=== PATIENT | male | born 1935 | race Caucasian/White ===

== ENCOUNTER 2020-02-09 11:08 | Inpatient (IN) | payer OTHER ==
[~2020-02-09] VITALS: Ht 165.1 cm; Wt 101.6 kg
[2020-02-09 11:46] LABS: BASOPHILS % (AUTO) 0.1 % (0.0-5.0); HEMATOCRIT 39.4 % (42-54); MEAN CORPUSCULAR HEMOGLOBIN 32.3 pg (27.0-33.0); MEAN CORPUSCULAR HGB CONC 33.5 g/dL (32.0-36.0); MEAN CORPUSCULAR VOLUME 96.3 fL (79-99); MONOCYTES % (AUTO) 9.3 % (3.0-13.0); NEUTROPHILS % (AUTO) 82.2 % (40.0-77.0); PLATELET COUNT (AUTO) 177 K/uL (130-400); RED BLOOD CELL COUNT(AUTO) 4.09 MIL/uL (4.50-6.20); WHITE BLOOD COUNT (AUTO) 13.7 K/uL (4.8-10.8)
[2020-02-09 12:03] LABS: INR 1.12 (0.85-1.15); PARTIAL THROMBOPLASTIN TIME 27.8 SEC (26.3-35.5)
[2020-02-09 12:15] LABS: ALANINE AMINOTRANSFERASE 10 U/L (12-78); ALBUMIN 3.5 g/dL (3.5-5.0); ASPARTATE AMINOTRANSFERASE 11 U/L (10-37); BILIRUBIN,TOTAL 1.3 mg/dL (0.2-1.0); CARBON DIOXIDE 28 mmol/L (21-32); CHLORIDE 100 mmol/L (101-111); CREATINE KINASE, TOTAL 51 U/L (21-232); CREATININE 1.3 mg/dL (0.5-1.5); GLOMERULAR FILTR. RATE CALC 56 mL/min (>60); GLUCOSE,RANDOM 147 mg/dL (70-105); MYOGLOBIN 72 ng/mL (10-92); POTASSIUM 4.1 mmol/L (3.5-5.1); SODIUM SERUM 135 mmol/L (136-145); TOTAL PROTEIN, SERUM 7.1 g/dL (6.0-8.3); TROPONIN I < 0.04 ng/mL (0.00-0.06); UREA NITROGEN, BLOOD 26 mg/dL (7-18)
[2020-02-09 12:25] LABS: BILIRUBIN,URINE Small (NEGATIVE); COLOR,URINE Dark Yellow (YELLOW); GLUCOSE, URINE (UA) Negative (NEGATIVE); KETONES,URINE Trace mg/dL (NEGATIVE); LEUKOCYTE ESTERASE ,URINE Trace (NEGATIVE); NITRATE,URINE Negative (NEGATIVE); OCCULT BLOOD,URINE Negative (NEGATIVE); PH,URINE 5.5 (5.0-8.0); PROTEIN,URINE POS 2+ mg/dL (NEGATIVE)
[2020-02-09] MEDS ORDERED: SODIUM CHLORIDE 0.9% 1000ML 3,000 ML IV ONE (12:38)
[2020-02-09] MEDS ORDERED: ZOSYN 3.375GM+NS 50ML 50 ML IV ONE (12:39)
[2020-02-09] MEDS ORDERED: ACETAMINOPHEN EXTRA STRENGTH 500 MG TABLET ONE (12:39)
[2020-02-09 13:13] LABS: MUCUS,URINE Moderate LPF (None Seen); RBC,URINE 0-1 /HPF (0-1); SQUAMOUS EPITHELIAL CELL,UR 0-2 /HPF (0-2); WBC,URINE 0-1 /HPF (0-1)
[2020-02-09 13:15] LABS: APPEARANCE,URINE TURBID (CLEAR); BACTERIA,URINE Moderate /HPF (None Seen)
[2020-02-09] MEDS ORDERED: HYDRALAZINE HCL 20 MG/ML VIAL IV PRN (19:00)
[2020-02-09] MEDS: DEXTROSE 5%-LACTATED RINGERS 1,000 ML IV SCH (19:00)
[2020-02-09] MEDS ORDERED: MORPHINE SULFATE 2 MG/ML 1ML SYG IVP PRN ×2 (19:00)
[2020-02-09] MEDS ORDERED: ACETAMINOPHEN 650 MG SUPPOSITORY RC PRN (19:00)
[2020-02-09] MEDS ORDERED: ONDANSETRON HCL 4 MG/2 ML VIAL IVP PRN (19:00)
[2020-02-09] MEDS ORDERED: DEXTROSE 5%-LACTATED RINGERS 1,000 ML IV ONE (19:24)
[2020-02-10] VITALS (20 sets, daily range): BP systolic 98–147; BP diastolic 52–79
[2020-02-10] MEDS: DEXTROSE 5%-LACTATED RINGERS 1,000 ML IV SCH ×2 (05:46→20:36)
[2020-02-10] MEDS: PANTOPRAZOLE 40 MG/VIAL IVP SCH (09:05)
--- NOTE | 2020-02-10 11:00 | NUR ---
RD NOTIFICATION Pt admitted with Acute appendicitis, Hx of HTN, DM. Pt is NPO Pending possible Lap-Appendectomy as per EMR. Pt with advanced age. Obesity Class II (BMI 37.0). When medically feasible, recommend advance diet as tolerated to goal of Heart Healthy, 75gm CC Diet order. RD to continue to monitor. Please notify as additional nutrition concerns arise. Thank you. Addendum: 02/10/20 at [address] Amended: Links added.
--- NOTE | 2020-02-10 12:50 | NUR ---
PATIENT SATURATING 90-92% ON ROOMAIR, DENIES SHORTNESS OF BREATH. ABG DONE ON ROOMAIR NOTED PO2 OF 55.1. PLACED PATIENT ON O2 2LPM AND O2 SAT IMPROVED TO 98-99%. WILL CONTINUE TO MONITOR.
[2020-02-10 12:52] LABS: ABG BASE EXCESS 0.6 mmol/L (-2.0-3.0); ABG HCO3 24.7 mmol/L (21.0-28.0); ABG OXYGEN SATURATION 89.6 % (95.0-99.0); ABG PCO2 38 mmHg (35-48)
--- NOTE | 2020-02-10 13:10 | NUR ---
RECEIVED CALL FROM TELE MONITOR, PATIENT AFIB RVR 150s. PATIENT AT THIS TIME SITTING UP IN CHAIR, DENIES CHEST PAIN, DENIES PALPITATIONS. BLOOD PRESSURE 121/64. CALL OUT PLACED TO DR. CHRISTOPHER. NEW ORDERS OBTAINED METOPROLOL 2.5MG IV Q6 PRN FOR HEARTRATE GREATER THAN 100. FIRST DOSE GIVEN. NEW ORDER CARDIO CONSULT, TROPONIN Q8 X 3, EKG Q8 X 3. PATIENT TOLERATED FIRST DOSE OF IV METOPROLOL WELL.
[2020-02-10] MEDS ORDERED: METOPROLOL TARTRATE 1 MG/ML 5ML VIAL IV PRN ×2 (13:15→15:45)
[2020-02-10] MEDS ORDERED: METOPROLOL TARTRATE 1 MG/ML 5ML VIAL IV ONE (13:19)
--- NOTE | 2020-02-10 13:20 | NUR ---
SPOKE WITH [facility] RIGHT OF [facility] MAN. MADE AWARE OF NEW CONSULT FOR NEW ONSET AFIB RVR. NEW ORDERS OBTAINED GIVE EXTRA DOSE OF METOPROLOL 2.5MG IV NOW. NEW ORDER METOPROLOL 5MG IV Q5MINS X3. HOLD FOR SBP LESS THAN 100. STAT ECHO. PATIENT TOLERATED 2ND DOSE OF IV METOPROLOL WELL. HEART RATE AFIB 130s. WILL CONTINUE TO MONITOR.
--- NOTE | 2020-02-10 13:31 | NUR ---
PATIENT CONTINUES WITH AFIB RVR SUSTAINED 130s. IV METOPROLOL 5MG ADMINISTERED . BLOOD PRESSURE 121/61. HEART RATE IMPROVED TO 90s, WILL CONTINUE TO MONITOR.
[2020-02-10] MEDS ORDERED: METOPROLOL TARTRATE 1 MG/ML 5ML VIAL IV SCH ×2 (13:45→14:50)
[2020-02-10] MEDS ORDERED: LIDOCAINE PF 2% 5ML ABBOJECT ONE (15:36)
[2020-02-10] MEDS ORDERED: DEXAMETHASONE SOD PHOSPHATE 10MG/ML 1ML VIAL ONE (15:36)
[2020-02-10] MEDS ORDERED: MIDAZOLAM HCL 1 MG/ML 2ML VIAL ONE (15:36)
[2020-02-10] MEDS ORDERED: SUCCINYLCHOLINE CHLORIDE 20 MG/ML 10 ML VIAL ONE (15:36)
[2020-02-10] MEDS ORDERED: GLYCOPYRROLATE 1 MG/5 ML SYRINGE ONE (15:37)
[2020-02-10] MEDS ORDERED: FENTANYL CITRATE PF 50 MCG/1 ML 2ML VIAL ONE (15:37)
[2020-02-10] MEDS ORDERED: NEOSTIGMINE 5MG/5ML SYR IV ONE (15:37)
[2020-02-10] MEDS ORDERED: ONDANSETRON HCL 4 MG/2 ML VIAL ONE (15:37)
[2020-02-10] MEDS ORDERED: ROCURONIUM 10MG/1ML SYR 10 MG/ML ML ONE (15:37)
[2020-02-10] MEDS ORDERED: PROPOFOL 10 MG/ML 20ML VIAL IV ONE (15:38)
[2020-02-10] MEDS ORDERED: DEXAMETHASONE SOD PHOSPHATE 4 MG/ML 1ML VIAL ONE (15:43)
--- NOTE | 2020-02-10 15:54 | NUR ---
DCP CM met with pt discussed dc plans. Pt is independent prior to admission, lives at home with spouse. Denies any equipments/services. Feels safe to go back home, still drives, spouse able to assist with transportation and needs as necessary. DC plan to home once stable. CM to cont to follow up. Addendum: 02/10/20 at 1555 by ROGER SHUKLA LVN CM Amended: Links added.
[2020-02-10] MEDS ORDERED: BUPIVACAINE/PF 0.5% 30ML VIAL ONE (15:55)
[2020-02-10] MEDS ORDERED: LIDOCAINE HCL-MPF 1% 2ML VIAL IV PRN (16:15)
[2020-02-10] MEDS ORDERED: MAGNESIUM 2GM PREMIX 50ML 50 ML IV PRN (16:15)
[2020-02-10] MEDS ORDERED: POTASSIUM CHLORIDE 20MEQ/100ML 100 ML IV PRN (16:15)
[2020-02-10] MEDS ORDERED: HEPARIN SODIUM 5000UNIT/ML 1ML VIAL SQ SCH (16:15)
[2020-02-10] MEDS ORDERED: CEFAZOLIN SODIUM 1 GM VIAL ONE (16:22)
[2020-02-10] MEDS ORDERED: INSULIN HUMULIN R 100 UNIT/ML 3ML SQ SCH (16:30)
[2020-02-10] MEDS ORDERED: LOSA50TA64 PO (16:33)
[2020-02-10] MEDS ORDERED: METO25TA6 PO (16:33)
[2020-02-10] MEDS ORDERED: METF-444 PO (16:33)
[2020-02-10] MEDS ORDERED: SIMV40TA59 PO (16:33)
[2020-02-10] MEDS ORDERED: CHOL200013 PO (16:33)
[2020-02-10 17:05] LABS: CREATININE 1.1 mg/dL (0.5-1.5); POTASSIUM 3.9 mmol/L (3.5-5.1)
[2020-02-10 17:09] LABS: ALBUMIN 2.9 g/dL (3.5-5.0); BILIRUBIN,TOTAL 0.9 mg/dL (0.2-1.0); MAGNESIUM 1.6 mg/dL (1.80-2.40); TOTAL PROTEIN, SERUM 6.3 g/dL (6.0-8.3)
--- NOTE | 2020-02-10 18:30 | NUR ---
PATIENT RETURNED FROM SURGERY, S/P LAP APPENDECTOMY. DRESSING TO ABDOMEN DRY AND INTACT. SANDRINE DRAIN DRAINING SEROSANG FLUID APPROX 50CC. PATIENT DENIES PAIN, AAOX3. PATIENT SINUS RHYTHM 75. PO METOPROLOL GIVEN. WILL CONTINUE TO MONITOR
[2020-02-10] MEDS: METOPROLOL SUCCINATE 50 MG TAB.SR.24H PO SCH (18:40)
[2020-02-10] MEDS: ZOSYN 3.375GM+NS 50ML 50 ML IV SCH (20:36)
[2020-02-10] MEDS ORDERED: IOHEXOL 350 MG/ML 100ML INFUS..BTL IV ONE (22:43)
--- NOTE | 2020-02-10 23:30 | NUR ---
sewing techniques demonstrator brought patient back because patient refused CTA chest and became aggressive and confused.Went to examine patient and he is alert and oriented ,he said he does not want the procedure period.He said he feels better now and wants to go home tomorrow as soon as the doctor shows up.
[2020-02-11 03:35] VITALS: BP 109/65
[2020-02-11] MEDS: ZOSYN 3.375GM+NS 50ML 50 ML IV SCH ×3 (06:21→20:56)
[2020-02-11] MEDS: METOPROLOL SUCCINATE 50 MG TAB.SR.24H PO SCH ×2 (06:52→16:30)
[2020-02-11 07:00] VITALS: BP 113/57
[2020-02-11 07:08] LABS: BASOPHILS % (AUTO) 0.1 % (0.0-5.0); HEMATOCRIT 33.8 % (42-54); LYMPHOCYTES % (AUTO) 6.1 % (21.0-51.0); MEAN CORPUSCULAR HEMOGLOBIN 32.1 pg (27.0-33.0); MEAN CORPUSCULAR HGB CONC 32.8 g/dL (32.0-36.0); MEAN CORPUSCULAR VOLUME 97.7 fL (79-99); MONOCYTES % (AUTO) 4.3 % (3.0-13.0); NEUTROPHILS % (AUTO) 88.9 % (40.0-77.0); PLATELET COUNT (AUTO) 179 K/uL (130-400); RED BLOOD CELL COUNT(AUTO) 3.46 MIL/uL (4.50-6.20); RED CELL DISTRIBUTION WIDTH 12.7 % (11.0-15.5); WHITE BLOOD COUNT (AUTO) 9.9 K/uL (4.8-10.8)
[2020-02-11 07:18] LABS: ALBUMIN 2.6 g/dL (3.5-5.0); BILIRUBIN,TOTAL 0.5 mg/dL (0.2-1.0); CREATININE 1.2 mg/dL (0.5-1.5); MAGNESIUM 1.7 mg/dL (1.80-2.40); POTASSIUM 3.8 mmol/L (3.5-5.1)
[2020-02-11 07:46] LABS: B-TYPE NATRIURETIC PEPTIDE 313 pg/mL (0-100)
[2020-02-11] MEDS: PANTOPRAZOLE 40 MG/VIAL IVP SCH (09:08)
[2020-02-11 11:00] VITALS: BP 102/59
[2020-02-11] MEDS: DEXTROSE 5%-LACTATED RINGERS 1,000 ML IV SCH (12:46)
[2020-02-11] MEDS: INSULIN HUMULIN R 100 UNIT/ML 3ML SQ SCH ×3 (12:49→20:57)
[2020-02-11 16:00] VITALS: BP 100/47
[2020-02-11] MEDS: METFORMIN HCL 500 MG TABLET PO SCH (16:45)
[2020-02-11 19:01] VITALS: BP 109/56
[2020-02-11] MEDS: SIMVASTATIN 20 MG TABLET PO SCH (20:57)
[2020-02-11] MEDS: LOSARTAN 50 MG TABLET PO SCH (20:58)
[2020-02-11 23:19] VITALS: BP 117/71
[2020-02-12] MEDS: DEXTROSE 5%-LACTATED RINGERS 1,000 ML IV SCH ×2 (00:20→13:40)
[2020-02-12 03:51] VITALS: BP 131/70
[2020-02-12 04:24] LABS: BASOPHILS % (AUTO) 0.1 % (0.0-5.0); HEMATOCRIT 30.2 % (42-54); MEAN CORPUSCULAR HEMOGLOBIN 31.6 pg (27.0-33.0); MEAN CORPUSCULAR HGB CONC 32.8 g/dL (32.0-36.0); MEAN CORPUSCULAR VOLUME 96.5 fL (79-99); MONOCYTES % (AUTO) 7.3 % (3.0-13.0); NEUTROPHILS % (AUTO) 82.1 % (40.0-77.0); PLATELET COUNT (AUTO) 183 K/uL (130-400); RED BLOOD CELL COUNT(AUTO) 3.13 MIL/uL (4.50-6.20); RED CELL DISTRIBUTION WIDTH 12.8 % (11.0-15.5); WHITE BLOOD COUNT (AUTO) 10.5 K/uL (4.8-10.8)
[2020-02-12 04:34] LABS: CREATININE 0.9 mg/dL (0.5-1.5); MAGNESIUM 1.8 mg/dL (1.80-2.40); PHOSPHORUS 2.8 mg/dL (2.5-4.9); POTASSIUM 3.9 mmol/L (3.5-5.1)
[2020-02-12] MEDS: ZOSYN 3.375GM+NS 50ML 50 ML IV SCH ×3 (04:47→21:00)
[2020-02-12] MEDS: INSULIN HUMULIN R 100 UNIT/ML 3ML SQ SCH ×4 (06:40→20:54)
[2020-02-12 07:00] VITALS: BP 99/59
[2020-02-12] MEDS: METOPROLOL SUCCINATE 50 MG TAB.SR.24H PO SCH ×2 (07:30→16:40)
[2020-02-12] MEDS: METFORMIN HCL 500 MG TABLET PO SCH ×2 (07:48→16:40)
[2020-02-12] MEDS: ***HM***(Cholecalciferol (Vitamin D3) (Vitamin D3) 50 MCG) PO SCH (07:50)
[2020-02-12] MEDS: ENOXAPARIN SODIUM 40 MG/0.4 ML SYRINGE SQ SCH (07:50)
[2020-02-12] MEDS ORDERED: METOPROLOL TARTRATE 25 MG TAB PO SCH (09:00)
[2020-02-12] MEDS: PANTOPRAZOLE 40 MG/VIAL IVP SCH (09:11)
[2020-02-12 11:00] VITALS: BP 105/63
[2020-02-12 16:00] VITALS: BP 106/65
[2020-02-12 19:58] VITALS: BP 108/55
[2020-02-12] MEDS: LOSARTAN 50 MG TABLET PO SCH (21:01)
[2020-02-12] MEDS: SIMVASTATIN 20 MG TABLET PO SCH (21:01)
[2020-02-12 23:37] VITALS: BP 118/67
[2020-02-13] MEDS: DEXTROSE 5%-LACTATED RINGERS 1,000 ML IV SCH ×2 (03:00→16:20)
[2020-02-13 03:41] VITALS: BP 109/63
[2020-02-13] MEDS: ZOSYN 3.375GM+NS 50ML 50 ML IV SCH ×3 (04:33→21:10)
[2020-02-13] MEDS: INSULIN HUMULIN R 100 UNIT/ML 3ML SQ SCH ×4 (06:02→21:00)
[2020-02-13 06:05] LABS: BASOPHILS % (AUTO) 0.3 % (0.0-5.0); EOSINOPHILS % (AUTO) 3.4 % (0.0-8.0); HEMATOCRIT 32.2 % (42-54); LYMPHOCYTES % (AUTO) 18.6 % (21.0-51.0); MEAN CORPUSCULAR HEMOGLOBIN 31.8 pg (27.0-33.0); MEAN CORPUSCULAR HGB CONC 32.9 g/dL (32.0-36.0); MEAN CORPUSCULAR VOLUME 96.7 fL (79-99); MONOCYTES % (AUTO) 9.4 % (3.0-13.0); NEUTROPHILS % (AUTO) 67.7 % (40.0-77.0); PLATELET COUNT (AUTO) 212 K/uL (130-400); RED BLOOD CELL COUNT(AUTO) 3.33 MIL/uL (4.50-6.20); RED CELL DISTRIBUTION WIDTH 12.7 % (11.0-15.5); WHITE BLOOD COUNT (AUTO) 8.9 K/uL (4.8-10.8)
[2020-02-13] MEDS: METOPROLOL SUCCINATE 50 MG TAB.SR.24H PO SCH (06:23)
[2020-02-13 06:30] LABS: CREATININE 1.1 mg/dL (0.5-1.5); POTASSIUM 3.4 mmol/L (3.5-5.1)
[2020-02-13 08:00] VITALS: BP 127/67
[2020-02-13] MEDS: PANTOPRAZOLE 40 MG/VIAL IVP SCH (08:42)
[2020-02-13] MEDS: METFORMIN HCL 500 MG TABLET PO SCH ×2 (08:42→17:00)
[2020-02-13] MEDS: ENOXAPARIN SODIUM 40 MG/0.4 ML SYRINGE SQ SCH (08:43)
[2020-02-13] MEDS: ***HM***(Cholecalciferol (Vitamin D3) (Vitamin D3) 50 MCG) PO SCH (08:43)
[2020-02-13] MEDS ORDERED: LIDOCAINE HCL-MPF 1% 2ML VIAL IV PRN (10:45)
[2020-02-13] MEDS ORDERED: POTASSIUM CHLORIDE 20MEQ/100ML 100 ML IV PRN (10:45)
[2020-02-13] MEDS ORDERED: POTASSIUM CHLORIDE 10% ELIXIR 20 MEQ/15 ML UDCUP PO PRN (10:45)
[2020-02-13 11:00] VITALS: BP 130/77
[2020-02-13] MEDS: POTASSIUM CHLORIDE 20 MEQ ERTAB PO PRN ×2 (12:25→17:50)
[2020-02-13 16:00] VITALS: BP 136/72
--- NOTE | 2020-02-13 18:14 | NUR ---
SANDRINE DISCONTINUED SANDRINE DRAIN DISCONTINUED PER DR RICHARD'S ORDERS. NO RESISTANCE WHILE REMOVING DRAIN, PATIENT TOLERATED WELL. COVERED WITH 4X4 AND MEDIPORE TAPE.
[2020-02-13 19:54] VITALS: BP 137/82
[2020-02-13] MEDS: APIXABAN 5 MG TABLET PO SCH (21:11)
[2020-02-13] MEDS: AMIODARONE HCL 200 MG TABLET PO SCH (21:11)
[2020-02-13] MEDS: SIMVASTATIN 20 MG TABLET PO SCH (21:12)
[2020-02-13] MEDS: LOSARTAN 50 MG TABLET PO SCH (21:12)
[2020-02-13 23:54] VITALS: BP 123/67
[2020-02-14 04:03] VITALS: BP 130/72
[2020-02-14 04:36] LABS: BASOPHILS % (AUTO) 0.4 % (0.0-5.0); EOSINOPHILS % (AUTO) 3.9 % (0.0-8.0); HEMATOCRIT 30.9 % (42-54); LYMPHOCYTES % (AUTO) 21.5 % (21.0-51.0); MEAN CORPUSCULAR HEMOGLOBIN 31.2 pg (27.0-33.0); MEAN CORPUSCULAR HGB CONC 32.4 g/dL (32.0-36.0); MEAN CORPUSCULAR VOLUME 96.3 fL (79-99); MONOCYTES % (AUTO) 9.9 % (3.0-13.0); NEUTROPHILS % (AUTO) 63.5 % (40.0-77.0); PLATELET COUNT (AUTO) 223 K/uL (130-400); RED BLOOD CELL COUNT(AUTO) 3.21 MIL/uL (4.50-6.20); RED CELL DISTRIBUTION WIDTH 12.8 % (11.0-15.5)
[2020-02-14] MEDS: ZOSYN 3.375GM+NS 50ML 50 ML IV SCH (05:16)
[2020-02-14 05:25] LABS: CREATININE 1.1 mg/dL (0.5-1.5); MAGNESIUM 1.4 mg/dL (1.80-2.40); POTASSIUM 3.4 mmol/L (3.5-5.1)
[2020-02-14] MEDS: INSULIN HUMULIN R 100 UNIT/ML 3ML SQ SCH (05:42)
[2020-02-14 07:15] VITALS: BP 151/66
[2020-02-14] MEDS: AMIODARONE HCL 200 MG TABLET PO SCH (08:25)
[2020-02-14] MEDS: POTASSIUM CHLORIDE 20 MEQ ERTAB PO PRN ×2 (08:25→09:29)
[2020-02-14] MEDS: PANTOPRAZOLE 40 MG/VIAL IVP SCH (08:25)
[2020-02-14] MEDS: APIXABAN 5 MG TABLET PO SCH (08:26)
[2020-02-14] MEDS: METFORMIN HCL 500 MG TABLET PO SCH (08:26)
[2020-02-14] MEDS: ***HM***(Cholecalciferol (Vitamin D3) (Vitamin D3) 50 MCG) PO SCH (08:26)
[2020-02-14] MEDS ORDERED: MAGNESIUM 2GM PREMIX 50ML 50 ML IV PRN (09:15)
[2020-02-14] MEDS ORDERED: AMOX-429 PO (09:23)
[2020-02-14] MEDS ORDERED: APIX5TAB PO (09:23)
[2020-02-14] MEDS ORDERED: AMIO200T44 PO (09:23)
[2020-02-14] MEDS ORDERED: MAGNESIUM 2GM PREMIX 50ML 50 ML IV ONE (09:26)
--- NOTE | 2020-02-14 12:41 | NUR ---
DISCHARGE DISCHARGE INSTRUCTIONS GIVEN TO PATIENT, VERBALIZED UNDERSTANDING. POST IVELISSE BEDOLLA TEACHING DONE. PATIENT IS TO FOLLOW UP WITH DR QUEZADA AND EMMA FLETCHER. ASIF ROMAN, TELEPAK REMOVED. Addendum: 02/14/20 at 1243 by BLAINE BAEZA RN RN PRESCRIPTIONS SENT ELECTRONICALLY TO [facility].
== END 2020-02-14 12:30 | disposition home or self-care (01) | DRG 854 ==
LOC: EDH 11:08 → EDHIP 18:20 → 4BH 02-10 01:12
PROVIDERS: ADMIT Internal Medicine Pulmonary Disease; ATTEND Internal Medicine Pulmonary Disease
PROC: 0DTJ4ZZ Resection of Appendix, Percutaneous Endoscopic Approach (ICD-10-PCS; principal; 2020-02-10 16:00)
DX: A41.9 Sepsis, unspecified organism (principal); K35.80 Unspecified acute appendicitis; I48.92 Unspecified atrial flutter; I10 Essential (primary) hypertension; E11.9 Type 2 diabetes mellitus without complications; E78.5 Hyperlipidemia, unspecified; Z20.828 Contact with and (suspected) exposure to other viral communicable diseases; R09.02 Hypoxemia; I49.3 Ventricular premature depolarization; K57.30 Diverticulosis of large intestine without perforation or abscess without bleeding; I48.0 Paroxysmal atrial fibrillation; K38.1 Appendicular concretions; Z79.4 Long term (current) use of insulin; Z79.84 Long term (current) use of oral hypoglycemic drugs; Z79.899 Other long term (current) drug therapy; Z91.19 Patient's noncompliance with other medical treatment and regimen; Z82.49 Family history of ischemic heart disease and other diseases of the circulatory system
CPT/HCPCS: 36415; 36600; 71045; 74176; 80048; 80053; 81001; 82550; 82803; 82948; 83605; 83735; 83874; 83880; 84100; 84145; 84443; 84484; 85025; 85610; 85730; 87040; 87088; 87635; 88304; 88342; 93005; 93306; 93356; C9113; G0378; J0330; J0690; J1100; J1650; J1815; J2001; J2250; J2405; J2543; J2704; J2710; J3010; J3475; J3490; J7030; Q9967

== ENCOUNTER 2020-09-26 09:44 | Inpatient (IN) | payer OTHER ==
[~2020-09-26] VITALS: Ht 167.6 cm; Wt 84.5 kg
[~2020-09-26 09:44] MED LIST: AMIO200T44 PO; AMOX-429 PO; APIX5TAB PO; CHOL200013 PO; LOSA50TA64 PO; METF-444 PO; SIMV40TA59 PO
[2020-09-26 10:35] LABS: ABG BASE EXCESS 0.3 mmol/L (-2.0-3.0); ABG HCO3 23.4 mmol/L (21.0-28.0); ABG OXYGEN SATURATION 93.6 % (95.0-99.0); ABG PCO2 33 mmHg (35-48)
[2020-09-26 10:38] LABS: BASOPHILS % (AUTO) 0.3 % (0.0-5.0); EOSINOPHILS % (AUTO) 0.1 % (0.0-8.0); HEMATOCRIT 38.5 % (42-54); LYMPHOCYTES % (AUTO) 6.4 % (21.0-51.0); MEAN CORPUSCULAR HEMOGLOBIN 31.8 pg (27.0-33.0); MEAN CORPUSCULAR VOLUME 96.3 fL (79-99); MONOCYTES % (AUTO) 7.7 % (3.0-13.0); NEUTROPHILS % (AUTO) 85.1 % (40.0-77.0); PLATELET COUNT (AUTO) 208 K/uL (130-400); RED CELL DISTRIBUTION WIDTH 12.8 % (11.0-15.5); WHITE BLOOD COUNT (AUTO) 15.7 K/uL (4.8-10.8)
[2020-09-26 10:49] LABS: CARBON DIOXIDE 27 mmol/L (21-32); CHLORIDE 103 mmol/L (101-111); CREATININE 1.5 mg/dL (0.5-1.5); GLOMERULAR FILTR. RATE CALC 48 mL/min (>60); GLUCOSE,RANDOM 150 mg/dL (70-105); INR 1.07 (0.85-1.15); POTASSIUM 4.5 mmol/L (3.5-5.1); PROTHROMBIN TIME 11.6 SEC (9.6-11.6); SODIUM SERUM 138 mmol/L (136-145); UREA NITROGEN, BLOOD 22 mg/dL (7-18)
[2020-09-26 10:50] LABS: PARTIAL THROMBOPLASTIN TIME 25.1 SEC (26.3-35.5)
[2020-09-26 10:59] LABS: ALANINE AMINOTRANSFERASE 19 U/L (12-78); ASPARTATE AMINOTRANSFERASE 16 U/L (10-37); BILIRUBIN,TOTAL 0.6 mg/dL (0.2-1.0); CREATINE KINASE, TOTAL 83 U/L (21-232); MYOGLOBIN 67 ng/mL (10-92); TOTAL PROTEIN, SERUM 7.5 g/dL (6.0-8.3); TROPONIN I < 0.04 ng/mL (0.00-0.06)
[2020-09-26 11:07] LABS: B-TYPE NATRIURETIC PEPTIDE 122 pg/mL (0-100)
[2020-09-26] MEDS ORDERED: 0.9%NACL 1000ML 1,000 ML IV ONE ×2 (12:30→17:39)
[2020-09-26 13:03] LABS: APPEARANCE,URINE Cloudy (CLEAR); BILIRUBIN,URINE Negative (NEGATIVE); COLOR,URINE Yellow (YELLOW); GLUCOSE, URINE (UA) Negative (NEGATIVE); KETONES,URINE Negative (NEGATIVE); LEUKOCYTE ESTERASE ,URINE Large (NEGATIVE); NITRATE,URINE Negative (NEGATIVE); OCCULT BLOOD,URINE Moderate (NEGATIVE); PH,URINE 5.5 (5.0-8.0); PROTEIN,URINE Trace mg/dL (NEGATIVE)
[2020-09-26 13:20] LABS: BACTERIA,URINE Few /HPF (None Seen); MUCUS,URINE Few LPF (None Seen); SQUAMOUS EPITHELIAL CELL,UR 0-2 /HPF (0-2)
[2020-09-26] MEDS ORDERED: CEFTRIAXONE 2GM VIAL ONE (13:27)
[2020-09-26] MEDS ORDERED: DIPHENHYDRAMINE HCL 25 MG CAPSULE PO PRN (15:00)
[2020-09-26] MEDS ORDERED: ACETAMINOPHEN WITH CODEINE 1 TAB TAB PO PRN (15:00)
[2020-09-26] MEDS ORDERED: ONDANSETRON 4MG INJ IV PRN (15:00)
[2020-09-26] MEDS ORDERED: ACETAMINOPHEN 325 MG TAB PO PRN ×2 (15:00)
[2020-09-26] MEDS ORDERED: MAGNESIUM 2GM PREMIX 50ML 50 ML IV PRN (15:00)
[2020-09-26] MEDS ORDERED: LACTULOSE 20 GM/30 ML UDCUP PO PRN (15:00)
[2020-09-26] MEDS ORDERED: POTASSIUM CHLORIDE 20MEQ/100ML 100 ML IV PRN (15:00)
[2020-09-26] MEDS: 0.9%NACL 1000ML 1,000 ML IV SCH (15:00)
[2020-09-26] MEDS ORDERED: LIDOCAINE HCL-MPF 1% 2ML VIAL IV PRN (15:00)
[2020-09-26] MEDS ORDERED: NITROGLYCERIN 0.4 MG SL TAB SL PRN (15:00)
[2020-09-26] MEDS ORDERED: HYDRALAZINE 20MG/ML VIAL IV PRN (15:00)
[2020-09-26] MEDS ORDERED: MORPHINE 2 MG SYG IV PRN (15:00)
[2020-09-26] MEDS ORDERED: ZOLPIDEM TARTRATE 5 MG TAB PO PRN (15:00)
[2020-09-26] MEDS ORDERED: MAG/ALUM/SIMETH 30 ML UDCUP PO PRN (15:00)
[2020-09-26] MEDS ORDERED: DiphenhydrAMINE HCL 50 MG/ML VIAL IV PRN (15:00)
[2020-09-26] MEDS ORDERED: GUAIFENESIN-DM 200/20 MG 10 ML PO PRN (15:00)
[2020-09-26] MEDS: INSULIN HUMULIN R 100 UNIT/ML 3ML SQ SCH ×2 (16:30→21:00)
[2020-09-26] MEDS ORDERED: LABETALOL 20MG SYG IV PRN (17:00)
[2020-09-26] MEDS: ZOSYN 3.375GM+NS 50ML 50 ML IV SCH (21:00)
[2020-09-26] MEDS: FAMOTIDINE 20MG TAB PO SCH (21:00)
[2020-09-26] MEDS ORDERED: FAMOTIDINE 20MG TAB ONE (22:43)
[2020-09-26] MEDS ORDERED: ZOSYN 3.375GM+NS 50ML 50 ML IV ONE (22:43)
[2020-09-27 02:15] VITALS: BP 114/57
[2020-09-27 03:28] LABS: BASOPHILS % (AUTO) 0.3 % (0.0-5.0); EOSINOPHILS % (AUTO) 0.1 % (0.0-8.0); HEMATOCRIT 32.3 % (42-54); LYMPHOCYTES % (AUTO) 14.4 % (21.0-51.0); MEAN CORPUSCULAR HEMOGLOBIN 31.9 pg (27.0-33.0); MEAN CORPUSCULAR HGB CONC 33.1 g/dL (32.0-36.0); MEAN CORPUSCULAR VOLUME 96.4 fL (79-99); MONOCYTES % (AUTO) 6.9 % (3.0-13.0); NEUTROPHILS % (AUTO) 77.8 % (40.0-77.0); PLATELET COUNT (AUTO) 164 K/uL (130-400); RED BLOOD CELL COUNT(AUTO) 3.35 MIL/uL (4.50-6.20); RED CELL DISTRIBUTION WIDTH 13.1 % (11.0-15.5); WHITE BLOOD COUNT (AUTO) 14.8 K/uL (4.8-10.8)
[2020-09-27 03:42] LABS: BILIRUBIN,TOTAL 0.7 mg/dL (0.2-1.0); CREATININE 1.3 mg/dL (0.5-1.5); MAGNESIUM 2.6 mg/dL (1.80-2.40); POTASSIUM 3.8 mmol/L (3.5-5.1)
[2020-09-27] MEDS: ZOSYN 3.375GM+NS 50ML 50 ML IV SCH ×3 (04:25→19:59)
[2020-09-27] MEDS: 0.9%NACL 1000ML 1,000 ML IV SCH ×3 (04:25→19:59)
[2020-09-27] MEDS: INSULIN HUMULIN R 100 UNIT/ML 3ML SQ SCH ×4 (05:15→19:58)
[2020-09-27 07:32] VITALS: BP 108/56
[2020-09-27] MEDS ORDERED: ENOXAPARIN SODIUM 30 MG/0.3 ML SQ SCH (09:00)
[2020-09-27 11:21] VITALS: BP 129/62
[2020-09-27 16:20] VITALS: BP 116/61
[2020-09-27] MEDS ORDERED: ACET-66 PO (18:03)
[2020-09-27] MEDS ORDERED: METO-408 PO (18:03)
[2020-09-27] MEDS ORDERED: APIX5TAB PO (19:14)
[2020-09-27] MEDS: FAMOTIDINE 20MG TAB PO SCH (19:59)
[2020-09-27 20:00] VITALS: BP 95/58
[2020-09-27 23:38] VITALS: BP 127/71
[2020-09-28 04:00] VITALS: BP 110/68
[2020-09-28] MEDS: ZOSYN 3.375GM+NS 50ML 50 ML IV SCH ×3 (04:12→20:42)
[2020-09-28] MEDS: INSULIN HUMULIN R 100 UNIT/ML 3ML SQ SCH ×4 (05:39→20:40)
[2020-09-28 08:00] VITALS: BP 110/62
[2020-09-28] MEDS: APIXABAN 5 MG TABLET PO SCH ×2 (09:03→20:42)
[2020-09-28] MEDS: 0.9%NACL 1000ML 1,000 ML IV SCH (09:09)
[2020-09-28 11:45] LABS: HEMATOCRIT 33.7 % (42-54); MEAN CORPUSCULAR HEMOGLOBIN 31.8 pg (27.0-33.0); MEAN CORPUSCULAR HGB CONC 32.9 g/dL (32.0-36.0); MEAN CORPUSCULAR VOLUME 96.6 fL (79-99); RED BLOOD CELL COUNT(AUTO) 3.49 MIL/uL (4.50-6.20); RED CELL DISTRIBUTION WIDTH 12.8 % (11.0-15.5); WHITE BLOOD COUNT (AUTO) 7.8 K/uL (4.8-10.8)
[2020-09-28 11:52] VITALS: BP 137/62
[2020-09-28 11:55] LABS: CREATININE 1.2 mg/dL (0.5-1.5); POTASSIUM 3.8 mmol/L (3.5-5.1)
[2020-09-28 16:00] VITALS: BP 126/74
[2020-09-28 20:42] VITALS: BP 111/60
[2020-09-28] MEDS: FAMOTIDINE 20MG TAB PO SCH (20:42)
[2020-09-28] MEDS ORDERED: LOSARTAN 50 MG TABLET PO SCH (21:00)
[2020-09-29 00:25] VITALS: BP 140/73
[2020-09-29] MEDS: 0.9%NACL 1000ML 1,000 ML IV SCH (00:26)
[2020-09-29] MEDS: ZOSYN 3.375GM+NS 50ML 50 ML IV SCH ×2 (03:59→13:00)
[2020-09-29 04:16] VITALS: BP 131/68
[2020-09-29] MEDS: INSULIN HUMULIN R 100 UNIT/ML 3ML SQ SCH ×2 (05:44→11:30)
[2020-09-29 08:00] VITALS: BP 136/70
[2020-09-29] MEDS: APIXABAN 5 MG TABLET PO SCH (08:57)
[2020-09-29] MEDS ORDERED: NITR100C4 PO (11:22)
[2020-09-29 12:00] VITALS: BP 114/71
== END 2020-09-29 17:00 | disposition home or self-care (01) | DRG 872 ==
LOC: EDH 09:44 → EDHIP 14:46 → OBSVTOIN 14:46 → 3DH 09-27 00:26
PROVIDERS: ADMIT Internal Medicine Critical Care Medicine; ATTEND Internal Medicine Critical Care Medicine
DX: A41.9 Sepsis, unspecified organism (principal); N39.0 Urinary tract infection, site not specified; I48.92 Unspecified atrial flutter; J98.11 Atelectasis; E11.9 Type 2 diabetes mellitus without complications; I10 Essential (primary) hypertension; E78.5 Hyperlipidemia, unspecified; E66.9 Obesity, unspecified; I48.0 Paroxysmal atrial fibrillation; R93.1 Abnormal findings on diagnostic imaging of heart and coronary circulation; N28.1 Cyst of kidney, acquired; K80.20 Calculus of gallbladder without cholecystitis without obstruction; K57.90 Diverticulosis of intestine, part unspecified, without perforation or abscess without bleeding; Z79.01 Long term (current) use of anticoagulants; Z90.49 Acquired absence of other specified parts of digestive tract; Z68.30 Body mass index [BMI] 30.0-30.9, adult; Z79.84 Long term (current) use of oral hypoglycemic drugs; Z20.822 Contact with and (suspected) exposure to COVID-19
CPT/HCPCS: 36415; 36600; 71045; 74176; 80048; 80053; 80061; 81001; 82140; 82550; 82803; 82948; 83036; 83605; 83735; 83874; 83880; 84145; 84484; 85025; 85027; 85378; 85610; 85730; 86900; 86901; 87040; 87077; 87088; 87186; 87426; 87804; 93005; G0378; J0696; J1650; J2543; J7030; U0003

== ENCOUNTER → 2024-02-19 | Outpatient (CLI) | payer OTHER ==
[~2024-02-19] MED LIST changes: +ACET-66 PO; -AMIO200T44 PO; -AMOX-429 PO; +METO-408 PO; +NITR100C4 PO
== END | disposition home or self-care (01) ==
LOC: SHCH 12:41
PROVIDERS: ATTEND Internal Medicine Cardiovascular Disease
DX: I08.8 Other rheumatic multiple valve diseases (principal); I65.23 Occlusion and stenosis of bilateral carotid arteries; I48.0 Paroxysmal atrial fibrillation
CPT/HCPCS: 93306; 93880